=== PATIENT | male | born 1995 | race Hispanic/Latino ===

== ENCOUNTER 2022-09-10 13:56 | Emergency (ER) | payer OTHER ==
[~2022-09-10] VITALS: Ht 170.2 cm; Wt 70.0 kg
[2022-09-10 14:25] LABS: HEMATOCRIT 39.4 % (39.0-50.0); HEMOGLOBIN 12.6 g/dl (14.0-18.0); MEAN CELL VOLUME 89.5 fL CALC (80.0-100.0); MEAN CORPUSCULAR HGB 28.6 pG CALC (26.0-32.0); NEUT# 7.11 thou/uL (1.82-7.42); RED BLOOD COUNT 4.4 mill/uL (4.70-6.10)
[2022-09-10 14:37] LABS: ALBUMIN 4.4 g/dL (3.2-5.0); ALKALINE PHOSPHATASE 107 u/l (38-126); ANION GAP 11 (6-22 (CALC)); BILIRUBIN, TOTAL 0.1 mg/dL (0.0-1.4); BUN 16 mg/dL (9-20); BUN/CREATININE RATIO 14 (12-20 (CALC)); CARBON DIOXIDE 31 mmol/l (22-30); CHLORIDE 104 mmol/l (95-108); CREATININE 1.1 mg/dL (0.7-1.3); GFR FOR AFR.AMER. > 60 ML/MIN (>=60 (CALC)); GFR OTHER RACES > 60 ML/MIN (>=60 (CALC)); POTASSIUM 4.3 mmol/l (3.5-5.1); SGOT/AST 50 u/l (17-59); SODIUM 142 mmol/l (137-146); TOTAL PROTEIN 7.3 g/dL (6.3-8.2)
[2022-09-10] MEDS ORDERED: PERCOCET 5/325M1 TAB PO (16:34)
[2022-09-10] MEDS ORDERED: KEFLEX500 MG PO (16:34)
[2022-09-10] MEDS ORDERED: MOTRIN800 MG PO (16:34)
[2022-09-10 17:51] VITALS: BP 110/73
== END 2022-09-10 18:04 | disposition home or self-care (01) | DRG 125 ==
LOC: ED 13:56
PROVIDERS: Emergency Medicine
DX: S05.31XA Ocular laceration without prolapse or loss of intraocular tissue, right eye, initial encounter (principal); W45.8XXA Other foreign body or object entering through skin, initial encounter